=== PATIENT | female | born 1985 ===

== ENCOUNTER 2024-09-22 03:08 | Emergency (ER) | payer OTHER ==
[2024-09-22 04:30] LABS: SARS-CoV-2 Antigen CONTROL BLUE LINE VIS/BG OK; SARS-CoV-2 Antigen Rapid Res Negative (Negative)
[2024-09-22] MEDS ORDERED: ACETAMINOPHEN 500 MG TAB ONE (04:58)
[2024-09-22] MEDS ORDERED: AZITHROMYCIN 250 MG TAB ONE (04:58)
[2024-09-22] MEDS ORDERED: IBUPROFEN 400 MG TAB ONE (04:59)
[2024-09-22] MEDS ORDERED: ONDANSETRON 4 MG (ODT) TAB ONE (04:59)
[2024-09-22] MEDS ORDERED: GUAIFENESIN/DM 5 ML UCUP ONE (05:00)
--- NOTE | 2024-09-22 06:27 | EDPHYS ---
Physician Documentation [facility] Name: Ani Mcclendon Age: 39 yrs Sex: Female : 1985 Arrival Date: 09/22/2024 Time: 03:08 Bed 8 Private MD: ED Physician Kj Silva HPI: 09/22 03:27 This 39 yrs old Female presents to ER via Unassigned with complaints of sp4 Cough, Fever, Congestion, Ear Pain. 09/23 02:15 39-year-old female presents with complaint of acute fever, cough, body aches, sp4 congestion, left ear pain.. 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 Patient has never been vaccinated. - Infectious Disease History:: Denies. - Social history:: Smoking status: Patient denies any tobacco usage or history of. - Family history:: not pertinent. ROS: 09/23 02:15 Constitutional: Positive fever and bodyaches Eyes: Negative for injury, pain, redness, sp4 and discharge, ENT: Positive cough congestion ear pain All other systems are negative, Exam: 02:15 Constitutional: This is a well developed, well nourished patient who is awake, alert, sp4 and in no acute distress. Head/Face: Normocephalic, atraumatic. Eyes: Pupils equal round and reactive to light, extra-ocular motions intact. Lids and lashes normal. Conjunctiva and sclera are not injected. Cornea within normal limits. Periorbital areas with no swelling, redness, or edema. ENT: Nares patent. Positive for clear nasal discharge, positive pharyngeal erythema, positive for left tympanic membrane redness and opacification. Otherwise normal Neck: Trachea midline, no thyromegaly or masses palpated, and no cervical lymphadenopathy. Supple, full range of motion without nuchal rigidity, or vertebral point tenderness. Chest/axilla: Normal chest wall appearance and motion. Nontender with no deformity. No lesions are appreciated. Cardiovascular: Regular rate and rhythm with a normal S1 and S2. No gallops, murmurs, or rubs. Normal PMI, no JVD. No pulse deficits. Respiratory: Lungs have equal breath sounds bilaterally, clear to auscultation and percussion. No rales, rhonchi or wheezes noted. No increased work of breathing, no retractions or nasal flaring. Abdomen/GI: Soft, with normal bowel sounds. No distension or tympany. No guarding or rebound. No evidence of tenderness throughout. Back: No spinal tenderness. No costovertebral tenderness. Skin: Warm, dry with normal turgor. Normal color with no rashes, no lesions, and no evidence of cellulitis. MS/ Extremity: Pulses equal, no cyanosis. Neurovascular intact. Full, normal range of motion. Neuro: Awake and alert, GCS 15, oriented to person, place, time, and situation. Cranial nerves II-XII grossly intact. Motor strength 5/5 in all extremities. Sensory grossly intact. Psych: Awake, alert, with orientation to person, place and time. Behavior, mood, and affect are within normal limits Vital Signs: 09/22 03:34 BP 181 / 116; Pulse 92; Resp 17; Temp 98.4; Pulse Ox 100% on R/A; Weight 102.06 kg; dd2 Height 5 ft. 0 in. ; 05:41 BP 156 / 111; Pulse 90; Resp 17; Pulse Ox 97% on R/A; dd2 06:52 BP 152 / 101; Pulse 88; Resp 16; Temp 98.6; Pulse Ox 97% on R/A; dd2 03:34 Body Mass Index 43.94 (102.06 kg, 152.4 cm) dd2 Bobby Coma Score: 03:44 Eye Response: spontaneous(4). Motor Response: obeys commands(6). Verbal Response: dd2 oriented(5). Total: 15. 09/23 02:15 Eye Response: spontaneous(4). Motor Response: obeys commands(6). Verbal Response: sp4 oriented(5). Total: 15. MDM: 09/22 04:04 Medical Screening Exam initiated sp4 09/23 02:17 Differential Diagnosis: Obstructed Airway Bronchitis Influenza Upper Respiratory sp4 Infection Sinusitis Pharyngitis. Data reviewed: vital signs, nurses notes, lab test result(s), Flu: negative. Consideration of Admission/Observation Escalation of care including admission/observation considered. ED course: Custom -- patient provided Zithromax. And symptomatic medications. Stable for discharge home.. 09/22 03:34 Order name: Flu; Complete Time: 06:11 dd2 09/22 03:34 Order name: SARS RAPID; Complete Time: 06:11 dd2 09/22 03:43 Order name: Strep rv1 09/22 04:13 Order name: Throat Culture EDMS Administered Medications: 09/22 05:07 Drug: Acetaminophen PO 1000 mg PO once Route: PO; dd2 05:37 Follow up: Response: No adverse reaction dd2 05:08 Drug: Ibuprofen PO 800 mg PO once Route: PO; dd2 05:38 Follow up: Response: No adverse reaction dd2 05:08 Drug: Ondansetron PO 4 mg PO once Route: PO; dd2 05:38 Follow up: Response: No adverse reaction dd2 05:08 Drug: AZITHromycin PO 500 mg PO once Route: PO; dd2 05:38 Follow up: Response: No adverse reaction dd2 05:08 Drug: Dextromethorphan-Guaifenesin PO Liquid 10 mg-100 mg/5 mL 20 ml PO once Route: PO; dd2 05:38 Follow up: Response: No adverse reaction dd2 05:38 Follow up: Response: No adverse reaction dd2 Disposition Summary: 09/22/24 06:27 Discharge Ordered Notes: Location: Home sp4 Problem: new sp4 Symptoms: have improved sp4 Condition: Stable sp4 Diagnosis - Acute pharyngitis, unspecified sp4 - Cough sp4 - Acute suppurative otitis media without spontaneous rupture of ear drum, left ear sp4 Followup: sp4 - With: Private Physician - When: 7 - 10 days - Reason: Recheck today's complaints Discharge Instructions: - Discharge Summary Sheet sp4 - Pharyngitis sp4 Forms: - Patient Portal Instructions sp4 Prescriptions: - dextromethorphan-guaifenesin 20-400 mg Oral tablet - take 2 tablet ORAL route every 6 hours PRN cough; 60 tablet; Refills: 0, sp4 Product Selection Permitted - Ibuprofen 800 mg Oral Tablet - take 1 tablet ORAL route every 8 hours As needed take with food; 30 tablet; sp4 Refills: 0, Product Selection Permitted - Zithromax Z-Rambo 250 mg Oral Tablet - take 1 tablet ORAL route as directed for 5 days Day 1 - take two (2) tablets sp4 one time. Day 2, 3, 4 , 5 take one (1) tablet once daily.; 6 tablet; Refills: 0, Product Selection Permitted - promethazine 25 mg Oral tablet - take 1 tablet ORAL route every 6 hours As needed; 30 tablet; Refills: 0, sp4 Product Selection Permitted Signatures: Dispatcher [employer] Kj Dillon MD MD sp4 CAMI DUBON RN RN dd2
--- NOTE | 2024-09-22 06:27 | ER ---
Nurse's Notes [facility] Name: Ani Mcclendon Age: 39 yrs Sex: Female : 1985 Arrival Date: 09/22/2024 Time: 03:08 Bed 8 Private MD: Diagnosis: Acute pharyngitis, unspecified;Cough;Acute suppurative otitis media without spontaneous rupture of ear drum, left ear Presentation: 09/22 03:34 Chief complaint: Patient states: cough, congestion, sore throat and Lt ear pain x2 dd2 days. treating with OTC TheraFkristin and Antonella. Coronavirus screen: congestion, cough unrelated to allergies, sore throat. Ebola Screen: No symptoms or risks identified at this time. Resp Distress? No respiratory distress is noted at this time. Initial Sepsis Screen: Does the patient meet any 2 criteria? No. Patient's initial sepsis screen is negative. Does the patient have a suspected source of infection? No. Patient's initial sepsis screen is negative. Risk Assessment: Do you want to hurt yourself or someone else? Patient reports no desire to harm self or others. Onset of symptoms was September 20, 2024. 03:34 Method Of Arrival: Ambulatory dd2 03:34 Acuity: LAZARO 3 dd2 Triage Assessment: 03:39 General: Appears in no apparent distress. uncomfortable, Behavior is calm, cooperative, dd2 appropriate for age. Pain: Complains of pain in throat, lt ear. EENT: Ear canal Throat is reddened Reports pain in left ear, throat when swallowing. EENT: Reports nasal congestion. Neuro: No deficits noted. Abbott Agitation-Sedation Scale (RASS): 0 - Alert and Calm Level of Consciousness is awake, alert, obeys commands, Oriented to person, place, time, situation, Appropriate for age. Cardiovascular: No deficits noted. Patient's skin is warm and dry. Respiratory: Reports cough that is non-productive, Airway is patent Respiratory effort is even, unlabored, Respiratory pattern is regular, symmetrical, Breath sounds are clear bilaterally. GI: No deficits noted. No signs and/or symptoms were reported involving the gastrointestinal system. Abdomen is non-distended, obese. : No deficits noted. No signs and/or symptoms were reported regarding the genitourinary system. Derm: No deficits noted. No signs and/or symptoms reported regarding the dermatologic system. Musculoskeletal: No deficits noted. No signs and/or symptoms reported regarding the musculoskeletal system. Circulation, motion, and sensation intact. Range of motion: intact in all extremities. 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 Patient has never been vaccinated. - Infectious Disease History:: Denies. - Social history:: Smoking status: Patient denies any tobacco usage or history of. - Family history:: not pertinent. Screenin:44 [facility] ED Fall Risk Assessment (Adult) History of falling in the last 3 months, dd2 including since admission No falls in past 3 months (0 pts) Confusion or Disorientation No (0 pts) Intoxicated or Sedated No (0 pts) Impaired Gait No (0 pts) Mobility Assist Device Used No (0 pt) Altered Elimination No (0 pt) Score/Fall Risk Level 0 - 2 = Low Risk Oriented to surroundings, Maintained a safe environment, Educated pt \T\ family on fall prevention, incl call for assistance when getting out of bed, Assessed \T\ reinforced patient's understanding of fall precautions, Hourly rounding (assess needs \T\ fall precautionary measures) done. Abuse screen: Denies threats or abuse. Nutritional screening: No deficits noted. Tuberculosis screening: No symptoms or risk factors identified. Assessment: 03:44 Reassessment: SEE TRIAGE ASSESSMENT FOR FULL ASSESSMENT. dd2 Vital Signs: 03:34 BP 181 / 116; Pulse 92; Resp 17; Temp 98.4; Pulse Ox 100% on R/A; Weight 102.06 kg; dd2 Height 5 ft. 0 in. ; 05:41 BP 156 / 111; Pulse 90; Resp 17; Pulse Ox 97% on R/A; dd2 06:52 BP 152 / 101; Pulse 88; Resp 16; Temp 98.6; Pulse Ox 97% on R/A; dd2 03:34 Body Mass Index 43.94 (102.06 kg, 152.4 cm) dd2 Bobby Coma Score: 03:44 Eye Response: spontaneous(4). Motor Response: obeys commands(6). Verbal Response: dd2 oriented(5). Total: 15. 09/23 02:15 Eye Response: spontaneous(4). Motor Response: obeys commands(6). Verbal Response: sp4 oriented(5). Total: 15. ED Course: 09/22 03:13 Patient arrived in ED. gm2 03:27 Kj Silva MD is Attending Physician. sp4 03:33 CAMI DUBON RN is Primary Nurse. dd2 03:39 Triage completed. dd2 03:39 Arm band placed on right wrist. dd2 03:44 Patient has correct armband on for positive identification. Bed in low position. Call dd2 light in reach. Side rails up X 1. Client placed on continuous cardiac and pulse oximetry monitoring. NIBP monitoring applied. Door closed. Noise minimized. Warm blanket given. Pillow given. Verbal reassurance given. 03:44 No provider procedures requiring assistance completed. COVID swab sent to lab. Flu dd2 and/or RSV swab sent to lab. Strep swab sent to lab. Patient maintains SpO2 saturation greater than 95% on room air. 03:47 Strep Sent. dd2 03:47 SARS RAPID Sent. dd2 03:47 Flu Sent. dd2 07:16 Provided Education on: D/C EDUCATION. dd2 07:16 Patient did not have IV access during this emergency room visit. dd2 Administered Medications: 05:07 Drug: Acetaminophen PO 1000 mg PO once Route: PO; dd2 05:37 Follow up: Response: No adverse reaction dd2 05:08 Drug: Ibuprofen PO 800 mg PO once Route: PO; dd2 05:38 Follow up: Response: No adverse reaction dd2 05:08 Drug: Ondansetron PO 4 mg PO once Route: PO; dd2 05:38 Follow up: Response: No adverse reaction dd2 05:08 Drug: AZITHromycin PO 500 mg PO once Route: PO; dd2 05:38 Follow up: Response: No adverse reaction dd2 05:08 Drug: Dextromethorphan-Guaifenesin PO Liquid 10 mg-100 mg/5 mL 20 ml PO once Route: PO; dd2 05:38 Follow up: Response: No adverse reaction dd2 05:38 Follow up: Response: No adverse reaction dd2 Medication: 03:44 VIS not applicable for this client. dd2 Outcome: 06:27 Discharge ordered by . sp4 07:16 Discharged to home ambulatory, dd2 07:16 Condition: stable 07:16 Discharge instructions given to patient, Instructed on discharge instructions, follow up and referral plans. medication usage, Demonstrated understanding of instructions, follow-up care, medications, Prescriptions given X 4, 07:17 Patient left the ED. dd2 Signatures: Kj Silva MD MD sp4 Anali Mary 2 CAMI DUBON RN RN dd2
[2024-09-22 08:00] VITALS: O2SAT 97
[2024-09-22 08:02] VITALS: BP 152/101; TEMP 98.6
== END 2024-09-22 07:17 | disposition home or self-care (01) ==
LOC: ER 03:08
DX: H66.002 Acute suppurative otitis media without spontaneous rupture of ear drum, left ear (principal); R05.9 Cough, unspecified; J02.9 Acute pharyngitis, unspecified; Z11.52 Encounter for screening for COVID-19
CPT/HCPCS: 87070; 36415; 87081; 87804 ×2; 87811; Q0162

== ENCOUNTER 2024-10-26 17:47 | Inpatient (IN) | payer OTHER ==
[2024-10-26 19:50] LABS: Absolute Basophils 0.1 K/uL (0-0.5); Absolute Eosinophils 0.2 K/uL (0-0.5); Absolute Lymphocytes (CBC) 3.3 K/uL (0.7-4.9); Absolute Monocytes 0.9 K/uL (0.1-1.3); Absolute Neutrophil 12.2 K/uL (1.8-8.0); Basophils % 0.8 % (0-1.3); Eosinophils % 1.1 % (0-4.4); Hemoglobin 9.2 g/dL (12.0-15.0); Lymphocytes % 19.6 % (15.3-44.8); MCH 17.9 pg (27.0-35.0); MCHC 29.5 g/dL (32.0-36.0); MCV 60.5 fL (80-100); MPV 8.6 fL (7.6-11.3); Monocytes % 5.3 % (3.3-12.3); Neutrophils % 73.2 % (41.7-73.7); Platelets 421 thou/uL (152-406); RBC Red Blood Cell Count 5.13 M/uL (3.86-4.86); Red Cell Distribution Width 19.5 % (12.1-15.2)
[2024-10-26] MEDS ORDERED: NA CHLORIDE 0.9% 1,000 ML ONE (19:59)
[2024-10-26 20:00] LABS: Specific Gravity 1.011 (1.005-1.030); Sqamous Epithelial <5 /HPF (None Seen); Urine Bacteria None Seen /HPF (<20); Urine Bilirubin NEGATIVE (Negative); Urine Blood Negative (Negative); Urine Clarity Extremely Turbid (Clear); Urine Color Light-Yellow (Yellow); Urine Crystals Unidentified Few /HPF (None Seen); Urine Glucose NEGATIVE (Negative); Urine Ketones NEGATIVE (Negative); Urine Micro Reflex YN NO BILL MICROSCOPIC; Urine Nitrite NEGATIVE (Negative); Urine Protein NEGATIVE (Negative); Urine RBC <5 /HPF (None Seen); Urine Urobilinogen Normal (Normal); Urine WBC <5 /HPF (<5); Urine WBC Clump Rare /HPF (None Seen); Urine Yeast (Budding) Trace /HPF (None Seen); Urine pH 5.5 (5.0-7.0)
[2024-10-26 20:02] LABS: Specific Gravity 1.011 (1.005-1.030)
[2024-10-26 20:11] LABS: Anion Gap 11.7 mEq/L (5.0-15.0); Potassium 3.7 mEq/L (3.5-5.1); Troponin High Sensitivity 33.3 pg/mL (<58.9)
--- NOTE | 2024-10-26 20:12 | RAD REPORT ---
EXAMINATION: ONE VIEW CHEST XR CLINICAL INDICATION: Female, 39 years old.,DYSPNEA TECHNIQUE: Frontal chest projection is submitted. Examination is limited by patient positioning and t echnique. COMPARISON: No prior exam. FINDINGS: The lungs are well inflated and clear. No pneumothorax or sizable effusion. The heart is normal in s ize. Mediastinal contours are unremarkable. IMPRESSION: No acute intrathoracic abnormalities.
[2024-10-26] MEDS ORDERED: Magnesium Sulfate 2gm IVPB 2 G/50 ML BAG IV ONE (20:14)
[2024-10-26] MEDS ORDERED: KETOROLAC 30 MG/ML INJ ONE (20:14)
[2024-10-26 21:00] LABS: Influenza A Ag Negative; Influenza B Ag Negative; SARS-CoV-2 Antigen Rapid Res Negative (Negative)
[2024-10-26] MEDS ORDERED: METOCLOPRAMIDE 10 MG/2mL INJ ONE (21:25)
[2024-10-26] MEDS ORDERED: HYDRALAZINE HCL 20 MG/ML VIAL ONE (21:25)
[2024-10-26 22:01] LABS: Anisocytosis 1+; Blood Morphology Comment NOTED (NOT SEEN); Hypochromasia 2+; Microcytosis 2+; Platelet Estimate INCR; Polychromasia SLIGHT; White Blood Cell Scan OK (OK)
[2024-10-26] MEDS ORDERED: VANCOMYCIN 1 GM/VIAL ONE (22:21)
[2024-10-26] MEDS ORDERED: NA CHLORIDE 0.9% 500 ML ONE (22:22)
[2024-10-26] MEDS ORDERED: NA CHLORIDE 0.9% 100 ML ONE (22:22)
[2024-10-26] MEDS ORDERED: CEFEPIME 1 GM/VIAL ONE (22:22)
--- NOTE | 2024-10-26 23:23 | RAD REPORT ---
EXAM: CT Head Brain Wo Cont HISTORY: DIZZINESS COMPARISON: None TECHNIQUE: Multiple contiguous axial images were obtained for a CT of the brain without contrast. Sag ittal and coronal reformats were performed. One or more of the following dose reduction techniques were used: Automated exposure control, adjus tment of the mA and kV according to patient size, and iterative reconstruction. Unless otherwise specified, incidental findings do not require dedicated imaging follow-up. FINDINGS: No evidence of hydrocephalus, intracranial hemorrhage, or extra-axial fluid collection. Mild descent of the cerebellar tonsils not exceeding 5 mm. The brain is normal in morphology. The calvarium is intact. The visualized paranasal sinuses and mastoid air cells are essentially clear . IMPRESSION: No evidence of acute intracranial abnormality. Mild tonsillar ectopia.
--- NOTE | 2024-10-27 00:04 | RAD REPORT ---
EXAM: CT CHEST, ABDOMEN AND PELVIS WITH CONTRAST CLINICAL INDICATION: Female, 39 years old. fever , sepsis TECHNIQUE: CT chest, abdomen, and pelvis was performed, following the administration of contrast, as per department protocol. Axial, sagittal and coronal reconstructions were obtained. One or more of the following dose reduction techniques were used: Automated exposure control, adjustment of the mA a nd/or kV according to patient size, and/or iterative reconstruction. Unless otherwise specified, incidental findings do not require dedicated imaging follow-up. COMPARISON: Called breasts for CT FINDINGS: Motion artifact at the level of the upper to mid abdomen limits evaluation. LUNGS AND AIRWAYS: No evidence of airspace or interstitial process. No nodules. PLEURA: No pleural effusion. No pneumothorax. MEDIASTINUM AND LYMPH NODES: No mediastinal mass or fluid collection. Normal size mediastinal, hilar, and axillary lymph nodes. THORACIC AORTA: Normal caliber and configuration. PULMONARY ARTERIES: Normal caliber. OSSEOUS STRUCTURES AND CHEST WALL: Intact. LIVER: Normal in size and contour. No focal lesion or biliary dilitation. BILIARY SYSTEM: Calcific focus probably within folds of the gallbladder fundus, may represent a calcu kevin.. PANCREAS: No mass, ductal dilation, or ani-pancreatic fluid. SPLEEN: Normal size. No focal lesion. ADRENALS: Normal; no mass. KIDNEYS AND URETERS: Normal size and contour. No hydronephrosis. URINARY BLADDER: Normal contour. GASTROINTESTINAL TRACT: No bowel obstruction, free air, significant free fluid or abscess. APPENDIX: No inflammatory changes in region of appendix. LYMPH NODES: No lymphadenopathy. ABDOMINAL AORTA AND OTHER VESSELS: Normal caliber aorta and IVC. MUSCULOSKELETAL: No acute or suspicious osseous abnormality. Grade 1 spondylolisthesis at L5-S1. Supe rior endplate compression deformities at T11 and T12, favored to be chronic. Bulky appearance of the uterine fundus, especially along the anterior wall, could relate to an underl nikolai fibroid. IMPRESSION: No acute or significant abnormalities seen in the chest, abdomen or pelvis. Motion artifact at the le rebeka of the upper to mid abdomen limits evaluation. Incidental findings as above.
[2024-10-27 00:07] LABS: ALT/SGPT 31 U/L (13-56); Albumin 3.4 g/dL (3.4-5.0); Albumin/Globulin Ratio 0.7 (1.1-1.8); Alkaline Phosphatase 125 U/L (45-117); Bilirubin Total 0.3 mg/dL (0.2-1.0); Globulin 4.6 g/dL (2.3-3.5)
[2024-10-27 00:16] LABS: AST/SGOT 31 U/L (15-37); Bilirubin Direct < 0.2 mg/dL (0-0.2); Bilirubin Indirect, Calculated 0.1 mg/dL (0.2-0.8)
--- NOTE | 2024-10-27 00:38 | EDPHYS ---
Physician Documentation [facility] Name: Ani Mcclendon Age: 39 yrs Sex: Female : 1985 Arrival Date: 10/26/2024 Time: 17:47 Bed 7 Private MD: ED Physician Kj Silva HPI: 10/26 19:40 This 39 yrs old Female presents to ER via Ambulatory with complaints of ec2 General Weakness, High Blood Pressure, Body aches, fatigue. 19:40 Patient arrives today for generalized weakness as well as malaise. Patient reports that ec2 she is been feeling unwell for the past couple days. Patient reports generalized bodyaches, reports that she is feeling fatigued. States that she has a history of hypothyroidism, is on levothyroxine however has not taken her medications for several days. Patient reports no chest pain, no shortness of breath, does report some baseline tiredness as well as some baseline dyspnea exertion which she attributes to her weight. Denies any active symptoms. Denies abdominal pain, denies urinary complaints. Reports history of anemia.. 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 - Infectious Disease History:: Denies. - Social history:: Smoking status: Patient denies any tobacco usage or history of. ROS: 19:41 Constitutional: as per hpi ec2 Exam: 19:41 Constitutional: GEN: NAD Head: atraumatic Eyes: EOMI Ears: External ears are ec2 normal. CV: Tachycardia LUNGS: no respiratory distress, no wheezes or rales or rhonchi ABD: non-distended, soft, nontender, not guarding, not rigid SKIN: no evidence of rashes MSK: no evidence of trauma 10/27 22:00 ECG was reviewed by the Attending Physician. 2143 sinus tachycardia rate 123 left sp4 axis deviation. Vital Signs: 10/26 18:09 BP 180 / 119; Pulse 111; Resp 19; Temp 98.6; Pulse Ox 100% ; Weight 102.06 kg; Height 5 me1 ft. 0 in. ; Pain 9/10; 19:45 BP 196 / 129; Pulse 104; Resp 18; Pulse Ox 100% ; al5 20:00 BP 208 / 138; Pulse 99; Resp 18; Pulse Ox 100% ; al5 20:30 BP 206 / 117; Pulse 102; Resp 20; Pulse Ox 100% ; al5 20:30 BP 201 / 122; Pulse 104; Resp 22; Pulse Ox 100% ; al5 21:00 BP 204 / 117; Pulse 106; Resp 16; Pulse Ox 100% ; al5 21:30 BP 156 / 102; Pulse 108; Resp 16; Pulse Ox 99% ; al5 22:00 BP 171 / 84; Pulse 117; Resp 21; Pulse Ox 100% ; al5 22:30 BP 141 / 84; Pulse 120; Resp 18; Pulse Ox 100% ; al5 23:00 BP 151 / 66; Pulse 117; Resp 19; Pulse Ox 100% ; al5 23:30 BP 156 / 72; Pulse 117; Resp 17; Pulse Ox 98% ; al5 10/27 00:00 BP 148 / 89; Pulse 116; Resp 17; Pulse Ox 99% ; al5 00:30 BP 153 / 100; Pulse 120; Resp 18; Pulse Ox 100% ; al5 01:00 BP 154 / 80; Pulse 115; Resp 16; Pulse Ox 100% ; al5 10/26 18:09 Body Mass Index 43.94 (102.06 kg, 152.4 cm) ak1 10/26 18:09 Pain Scale: Adult [facility] MDM: 10/26 18:09 Medical Screening Exam initiated ec2 19:41 Data reviewed: vital signs, nurses notes. ED course: Patient arrives today for ec2 generalized weakness. Examination yields tachycardic individual who is hypertensive. Will obtain lab work, EKG, chest x-ray, urine studies. DDx include processes such as thyroid process, anemia, electrolyte disturbances, dehydration.. 19:56 ED course: EKG independently reviewed and interpreted by me, shows normal sinus rhythm, ec2 rate of 98, no acute ST segment elevations, intervals are nonactionable.. 23:55 ED course: EXAM: CT Head Brain Wo Cont HISTORY: DIZZINESS COMPARISON: None TECHNIQUE: sp4 Multiple contiguous axial images were obtained for a CT of the brain without contrast. Sagittal and coronal reformats were performed. One or more of the following dose reduction techniques were used: Automated exposure control, adjustment of the mA and kV according to patient size, and iterative reconstruction. Unless otherwise specified, incidental findings do not require dedicated imaging follow-up. FINDINGS: No evidence of hydrocephalus, intracranial hemorrhage, or extra-axial fluid collection. Mild descent of the cerebellar tonsils not exceeding 5 mm. The brain is normal in morphology. The calvarium is intact. The visualized paranasal sinuses and mastoid air cells are essentially clear. IMPRESSION: No evidence of acute intracranial abnormality. Mild tonsillar ectopia. . 23:57 ED course: EXAMINATION: ONE VIEW CHEST XR CLINICAL INDICATION: Female, 39 years sp4 old.,DYSPNEA TECHNIQUE: Frontal chest projection is submitted. Examination is limited by patient positioning and technique. COMPARISON: No prior exam. FINDINGS: The lungs are well inflated and clear. No pneumothorax or sizable effusion. The heart is normal in size. Mediastinal contours are unremarkable. IMPRESSION: No acute intrathoracic abnormalities. . 10/27 00:15 ED course: EXAM: CT CHEST, ABDOMEN AND PELVIS WITH CONTRAST CLINICAL INDICATION: sp4 Female, 39 years old. fever , sepsis COMPARISON: Called breasts for CT FINDINGS: Motion artifact at the level of the upper to mid abdomen limits evaluation. LUNGS AND AIRWAYS: No evidence of airspace or interstitial process. No nodules. PLEURA: No pleural effusion. No pneumothorax. MEDIASTINUM AND LYMPH NODES: No mediastinal mass or fluid collection. Normal size mediastinal, hilar, and axillary lymph nodes. THORACIC AORTA: Normal caliber and configuration. PULMONARYARTERIES: Normal caliber. OSSEOUS STRUCTURES AND CHEST WALL: Intact. LIVER: Normal in size and contour. No focal lesion or biliary dilitation. BILIARYSYSTEM: Calcific focus probably within folds of the gallbladder fundus, may represent a calculus.. PANCREAS: No mass, ductal dilation, or ani-pancreatic fluid. SPLEEN: Normal size. No focal lesion. ADRENALS: Normal; no mass. KIDNEYS AND URETERS: Normal size and contour. No hydronephrosis. URINARYBLADDER: Normal contour. GASTROINTESTINAL TRACT: No bowel obstruction, free air, significant free fluid or abscess. APPENDIX: No inflammatory changes in region of appendix. LYMPH NODES: No lymphadenopathy. ABDOMINAL AORTA AND OTHER VESSELS: Normal caliber aorta and IVC. MUSCULOSKELETAL: No acute or suspicious osseous abnormality. Grade 1 spondylolisthesis at L5-S1. Superior endplate compression deformities at T11 and T12, favored to be chronic. Bulky appearance of the uterine fundus, especially along the anterior wall, could relate to an underlying fibroid. IMPRESSION: No acute or significant abnormalities seen in the chest, abdomen or pelvis. Motion artifact at the level of the upper to mid abdomen limits evaluation. Incidental findings as above. . 10/26 18:02 Order name: Basic Metabolic Panel; Complete Time: 20:12 ec2 10/26 18:02 Order name: CBC with Diff; Complete Time: 23:17 ec2 10/26 18:02 Order name: Troponin HS; Complete Time: 20:12 ec2 10/26 18:02 Order name: UAM; Complete Time: 20:02 ec2 10/26 18:10 Order name: Test, Urine; Complete Time: 20:02 ec2 10/26 19:38 Order name: TSH; Complete Time: 00:28 ec2 10/26 19:38 Order name: T4 Free; Complete Time: 00:28 ec2 10/26 19:38 Order name: LFT's; Complete Time: 00:28 ec2 10/26 19:40 Order name: CK; Complete Time: 23:55 ec2 10/26 20:03 Order name: COVID-19 Ag + Flu A+B Ag; Complete Time: 23:17 ec2 10/26 20:03 Order name: Lactate w/ 2H reflex if indic.; Complete Time: 23:17 ec2 10/26 20:03 Order name: Blood Culture Adult (2) ec2 10/26 22:02 Order name: CBC Smear Scan; Complete Time: 23:17 EDMS 10/27 02:26 Order name: Basic Metabolic Panel EDMS 10/27 02:26 Order name: Basic Metabolic Panel EDMS 10/27 02:26 Order name: CBC with Automated Diff EDMS 10/27 02:26 Order name: CBC with Automated Diff EDMS 10/27 02:26 Order name: Lipid Profile EDMS 10/27 02:26 Order name: Lipid Profile EDMS 10/27 06:17 Order name: T3 Free EDID 10/27 08:42 Order name: CBC with Automated Diff EDID 10/27 08:42 Order name: Retic Count EDID 10/27 08:53 Order name: Procalcitonin EDID 10/27 09:10 Order name: Comprehensive Metabolic Panel EDID 10/27 09:10 Order name: Magnesium EDID 10/27 09:10 Order name: Transferrin Sat/Iron Binding EDID 10/27 09:10 Order name: Ferritin [facility] 10/26 19:38 Order name: CXR XRAY; Complete Time: 20:12 ec2 10/26 21:31 Order name: CT Head Brain wo Cont; Complete Time: 23:55 sp4 10/26 21:31 Order name: CT Chest, Abdomen, Pelvis - W/Contrast; Complete Time: 00:28 sp4 10/26 18:02 Order name: EKG; Complete Time: 18:03 ec2 10/26 18:02 Order name: Cardiac monitoring; Complete Time: 19:44 ec2 10/26 18:02 Order name: EKG - Nurse/Tech; Complete Time: 19:44 ec2 10/26 18:02 Order name: IV Saline Lock; Complete Time: 19:44 ec2 10/26 18:02 Order name: Labs collected and sent; Complete Time: 19:44 ec2 10/26 18:02 Order name: O2 Per Protocol; Complete Time: 19:44 ec2 10/26 18:02 Order name: O2 Sat Monitoring; Complete Time: 19:44 ec2 EC/25 21:43 Rate is 123 beats/min. Rhythm is regular, Sinus tachycardia. Left axis deviation noted. sp4 VA interval is normal. QRS interval is normal. QT interval is normal. No Q waves. T waves are Normal. No ST changes noted. Clinical impression: No evidence of ischemia. Interpreted by me. Reviewed by me. Administered Medications: 20:01 Drug: NS 0.9% IV 1000 ml IV at 1000 ml once; to be given as a bolus over 60 minutes al5 Route: IV; Rate: 1000 ml; Site: right antecubital; 10/27 00:00 Follow up: Response: No adverse reaction; IV Status: Completed infusion; IV Intake: al5 1000ml 10/26 20:20 Drug: Magnesium Sulfate IVPB 2 grams IVPB once over 30 mins Route: IVPB; Infused Over: al5 30 mins; Site: right antecubital; 21:31 Follow up: Response: No adverse reaction; IV Status: Completed infusion; IV Intake: [id number] 20:20 Drug: Ketorolac IVP 15 mg IVP once Route: IVP; Site: right antecubital; al5 21:31 Follow up: Response: No adverse reaction; No adverse reaction; body aches decreased al5 21:31 Drug: hydrALAZINE IVP 20 mg IVP once Route: IVP; Site: right antecubital; al5 23:21 Follow up: Response: No adverse reaction; Blood pressure is lowered al5 21:31 Drug: metoCLOPramide IVP 10 mg IVP once; over 1 to 2 minutes Route: IVP; Site: right al5 antecubital; 23:21 Follow up: Response: No adverse reaction al5 23:21 Not Given (Physician Discretion): morphineor iv 4 mg IVP once over 4 mins al5 23:21 Drug: Cefepime IVPB 1 grams IVPB at 200 ml/hr once over 30 mins; (mix in NS 100 mL) al5 Route: IVPB; Rate: 200 ml/hr; Infused Over: 30 mins; Site: right antecubital; 10/27 00:00 Follow up: Response: No adverse reaction; IV Status: Completed infusion; IV Intake: al5 100ml 10/26 23:22 Not Given (Physician Discretion): ondansetron 4 mg IVP once; over 2 minutes al5 10/27 00:02 Drug: vancoMYCIN IVPB 2 grams IVPB at calculated rate once Route: IVPB; Rate: dd2 calculated rate; Site: right forearm; 02:13 Follow up: Response: No adverse reaction; IV Status: Completed infusion; IV Intake: al5 500ml Disposition Summary: 10/27/24 00:38 Hospitalization Ordered Notes: Hospitalization Status: Inpatient Admission sp4 Provider: Prince jackelyn Han Condition: Serious sp4 Problem: new sp4 Symptoms: have improved sp4 Bed/Room Type: Standard sp4 Location: Telemetry/MedSurg (Inpatient)(10/27/24 13:51) bd Room Assignment: 223(10/27/24 13:51) bd Diagnosis - Severe sepsis without septic shock sp4 - Uncontrolled hypertension, hypertensive urgency sp4 Forms: - Medication Reconciliation Form sp4 - SBAR form sp4 - Leadership Thank You Letter sp4 Critical care time excluding procedures: 00:38 Critical care time: Bedside Care: 36 minutes, Consultation: 12 minutes, Family sp4 Intervention: 12 minutes. Total time: 60 minutes Signatures: Dispatcher [employer] EDMS Rosemarie Wallace bd Vanesa Monroe rv1 Kj Silva MD MD sp4 Alie Nice, RN RN me1 Toro Maciel MD MD ec2 Senia Bruce RN RN al5 CAMI DUBON RN RN dd2 Corrections: (The following items were deleted from the chart) 10/26 19:41 19:41 CREATINE PHOSPHOKINASE+C.LAB.BRZ ordered. EDMS EDMS 19:41 19:40 Patient arrives today for generalized weakness as well as malaise.. ec2 ec2 20:03 20:03 COVID-19 Ag + Flu A+B Ag+I.LAB.BRZ ordered. EDMS EDMS 20:03 20:03 LACTATE+C.LAB.BRZ ordered. EDMS EDMS 20:03 20:03 BLOOD CULTURE*+BA.LAB.BRZ ordered. EDMS EDMS 21:31 21:31 Head Brain Wo Cont+CT.RAD.BRZ ordered. EDMS EDMS 10/27 04:03 00:38 Telemetry/MedSurg (Inpatient) sp4 rv1 04:03 00:38 sp4 rv1 13:51 04:03 [facility] ER HOLD rv1 bd 13:51 04:03 ERHOLD- rv1 bd
--- NOTE | 2024-10-27 00:38 | ER ---
Nurse's Notes [facility] Name: Ani Mcclendon Age: 39 yrs Sex: Female : 1985 Arrival Date: 10/26/2024 Time: 17:47 Bed 7 Private MD: Diagnosis: Severe sepsis without septic shock;Uncontrolled hypertension, hypertensive urgency Presentation: 10/26 18:09 Chief complaint: Patient states: she has had generalized weakness, body aches, high me1 blood pressure that started yesterday afternoon. Coronavirus screen: Vaccine status: Patient reports receiving the 2nd dose of the covid vaccine. Ebola Screen: No symptoms or risks identified at this time. Initial Sepsis Screen: Does the patient meet any 2 criteria? HR > 90 bpm. Does the patient have a suspected source of infection? No. Patient's initial sepsis screen is negative. Risk Assessment: Do you want to hurt yourself or someone else? Patient reports no desire to harm self or others. Onset of symptoms. 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 - Infectious Disease History:: Denies. - Social history:: Smoking status: Patient denies any tobacco usage or history of. Screenin:46 [facility] ED Fall Risk Assessment (Adult) History of falling in the last 3 months, al5 including since admission No falls in past 3 months (0 pts) Confusion or Disorientation No (0 pts) Intoxicated or Sedated No (0 pts) Impaired Gait No (0 pts) Mobility Assist Device Used No (0 pt) Altered Elimination No (0 pt) Score/Fall Risk Level 0 - 2 = Low Risk Oriented to surroundings, Maintained a safe environment, Hourly rounding (assess needs \T\ fall precautionary measures) done. Abuse screen: Denies threats or abuse. Denies injuries from another. Nutritional screening: No deficits noted. Tuberculosis screening: No symptoms or risk factors identified. Assessment: 19:44 General: Appears in no apparent distress. comfortable, Behavior is calm, cooperative. al5 Pain: Complains of pain in generalized. Neuro: Level of Consciousness is awake, alert, obeys commands, Oriented to person, place, time, situation. Cardiovascular: Reports high BP, generalized weakness Capillary refill < 3 seconds Patient's skin is warm and dry. Respiratory: Airway is patent Respiratory effort is even, unlabored, Respiratory pattern is regular, symmetrical. GI: No signs and/or symptoms were reported involving the gastrointestinal system. : No signs and/or symptoms were reported regarding the genitourinary system. EENT: No signs and/or symptoms were reported regarding the EENT system. Derm: Skin is intact, is healthy with good turgor, Skin is pink, warm \T\ dry. normal. Musculoskeletal: No signs and/or symptoms reported regarding the musculoskeletal system. 20:41 Reassessment: Patient appears in no apparent distress at this time. No changes from al5 previously documented assessment. Patient and/or family updated on plan of care and expected duration. Pain level reassessed. Patient is alert, oriented x 3, equal unlabored respirations, skin warm/dry/pink. 21:28 Reassessment: Patient appears in no apparent distress at this time. No changes from al5 previously documented assessment. Patient and/or family updated on plan of care and expected duration. Pain level reassessed. Patient is alert, oriented x 3, equal unlabored respirations, skin warm/dry/pink. 23:39 Reassessment: Patient appears in no apparent distress at this time. No changes from al5 previously documented assessment. Patient and/or family updated on plan of care and expected duration. Pain level reassessed. Patient is alert, oriented x 3, equal unlabored respirations, skin warm/dry/pink. BP has decreased to normal parameters. 10/27 01:00 Reassessment: Patient appears in no apparent distress at this time. No changes from al5 previously documented assessment. Patient and/or family updated on plan of care and expected duration. Pain level reassessed. Patient is alert, oriented x 3, equal unlabored respirations, skin warm/dry/pink. Vital Signs: 10/26 18:09 BP 180 / 119; Pulse 111; Resp 19; Temp 98.6; Pulse Ox 100% ; Weight 102.06 kg; Height 5 me1 ft. 0 in. ; Pain 9/10; 19:45 BP 196 / 129; Pulse 104; Resp 18; Pulse Ox 100% ; al5 20:00 BP 208 / 138; Pulse 99; Resp 18; Pulse Ox 100% ; al5 20:30 BP 206 / 117; Pulse 102; Resp 20; Pulse Ox 100% ; al5 20:30 BP 201 / 122; Pulse 104; Resp 22; Pulse Ox 100% ; al5 21:00 BP 204 / 117; Pulse 106; Resp 16; Pulse Ox 100% ; al5 21:30 BP 156 / 102; Pulse 108; Resp 16; Pulse Ox 99% ; al5 22:00 BP 171 / 84; Pulse 117; Resp 21; Pulse Ox 100% ; al5 22:30 BP 141 / 84; Pulse 120; Resp 18; Pulse Ox 100% ; al5 23:00 BP 151 / 66; Pulse 117; Resp 19; Pulse Ox 100% ; al5 23:30 BP 156 / 72; Pulse 117; Resp 17; Pulse Ox 98% ; al5 10/27 00:00 BP 148 / 89; Pulse 116; Resp 17; Pulse Ox 99% ; al5 00:30 BP 153 / 100; Pulse 120; Resp 18; Pulse Ox 100% ; al5 01:00 BP 154 / 80; Pulse 115; Resp 16; Pulse Ox 100% ; al5 10/26 18:09 Body Mass Index 43.94 (102.06 kg, 152.4 cm) [facility] 10/26 18:09 Pain Scale: Adult [facility] ED Course: 10/26 17:50 Patient arrived in ED. im 18:02 Toro Maciel MD is Attending Physician. ec2 18:14 Triage completed. me1 18:14 Arm band placed on Patient placed in waiting room. me1 19:44 Senia Bruce, NIK is Primary Nurse. al5 19:47 Patient has correct armband on for positive identification. Bed in low position. Call al5 light in reach. Side rails up X 1. Provided Education on: plan of care. 19:47 No provider procedures requiring assistance completed. Inserted saline lock: 22 gauge al5 in right antecubital area, using aseptic technique. Blood collected. Flushed with 10 mL NS. 19:50 CXR XRAY In Process Unspecified. EDMS 20:37 Attending Physician role handed off by Toro Maciel MD sp4 20:37 Kj Silva MD is Attending Physician. sp4 20:49 Blood Culture Adult (2) Sent. rv1 20:49 Lactate w/ 2H reflex if indic. Sent. rv1 20:49 COVID-19 Ag + Flu A+B Ag Sent. rv1 22:20 CT Head Brain wo Cont In Process Unspecified. EDMS 22:20 CT Chest, Abdomen, Pelvis - W/Contrast In Process Unspecified. EDMS 10/27 00:37 Prince Han MD is Hospitalizing Provider. sp4 01:00 Patient admitted, IV remains in place. al5 Administered Medications: 10/26 20:01 Drug: NS 0.9% IV 1000 ml IV at 1000 ml once; to be given as a bolus over 60 minutes al5 Route: IV; Rate: 1000 ml; Site: right antecubital; 10/27 00:00 Follow up: Response: No adverse reaction; IV Status: Completed infusion; IV Intake: al5 1000ml 10/26 20:20 Drug: Magnesium Sulfate IVPB 2 grams IVPB once over 30 mins Route: IVPB; Infused Over: al5 30 mins; Site: right antecubital; 21:31 Follow up: Response: No adverse reaction; IV Status: Completed infusion; IV Intake: [id number] 20:20 Drug: Ketorolac IVP 15 mg IVP once Route: IVP; Site: right antecubital; al5 21:31 Follow up: Response: No adverse reaction; No adverse reaction; body aches decreased al5 21:31 Drug: hydrALAZINE IVP 20 mg IVP once Route: IVP; Site: right antecubital; al5 23:21 Follow up: Response: No adverse reaction; Blood pressure is lowered al5 21:31 Drug: metoCLOPramide IVP 10 mg IVP once; over 1 to 2 minutes Route: IVP; Site: right al5 antecubital; 23:21 Follow up: Response: No adverse reaction al5 23:21 Not Given (Physician Discretion): morphineor iv 4 mg IVP once over 4 mins al5 23:21 Drug: Cefepime IVPB 1 grams IVPB at 200 ml/hr once over 30 mins; (mix in NS 100 mL) al5 Route: IVPB; Rate: 200 ml/hr; Infused Over: 30 mins; Site: right antecubital; 10/27 00:00 Follow up: Response: No adverse reaction; IV Status: Completed infusion; IV Intake: al5 100ml 10/26 23:22 Not Given (Physician Discretion): ondansetron 4 mg IVP once; over 2 minutes al5 10/27 00:02 Drug: vancoMYCIN IVPB 2 grams IVPB at calculated rate once Route: IVPB; Rate: dd2 calculated rate; Site: right forearm; 02:13 Follow up: Response: No adverse reaction; IV Status: Completed infusion; IV Intake: al5 500ml Medication: 10/26 19:47 VIS not applicable for this client. al5 Intake: 21:31 IV: 50ml; Total: 50ml. al5 10/27 00:00 IV: 100ml; Total: 150ml. al5 00:00 IV: 1000ml; Total: 1150ml. al5 02:13 IV: 500ml; Total: 1650ml. al5 Outcome: 00:38 Decision to Hospitalize by Provider. sp4 01:00 Admitted to ER Hold. Please see [facility] for further documentation. al5 01:00 Condition: stable 01:00 Instructed on the need for admit, 15:10 Patient left the ED. ph Signatures: Dispatcher [employer] Vickie Kaiser RN RN ph Villegas, Rebecca rv1 Kj Silva MD MD sp4 Lindsey Fuentes Michelle, RN RN me1 Toro Maciel MD MD ec2 Senia Bruce RN RN al5 CAMI DUBON RN RN dd2 Corrections: (The following items were deleted from the chart) 10/26 23:39 23:39 Reassessment: Patient appears in no apparent distress at this time. No changes al5 from previously documented assessment. Patient and/or family updated on plan of care and expected duration. Pain level reassessed. Patient is alert, oriented x 3, equal unlabored respirations, skin warm/dry/pink. al5
--- NOTE | 2024-10-27 02:31 | P.HP ---
Certification for Inpatient Patient admitted to: Inpatient With expected LOS: >2 Midnights Practitioner: I am a practitioner with admitting privileges, knowledge of patient current condition, hospital course, and medical plan of care. Services: Services provided to patient in accordance with Admission requirements found in Title 42 Section 412.3 of the Code of Federal Regulations Patient History Date of Service: 10/27/24 Reason for admission: suspected sepsis History of Present Illness: Patient is a 39 year old female with morbid obesity, HTN AND hyperlipidemia. She is being admitted for sepsis work up. She presents with generalized weakness, myalgia and lethargy. She denies fever, chills or shortness of breath. Associated symptoms include diffuse body pain. Work up in the ER shows a WBC OF 16K. CT chest/abd/pelvis unremarkable. Physical Examination - Physical Exam General: Acute distress, Obese HEENT: Atraumatic, Normocephalic Respiratory: Clear to auscultation bilaterally, Normal air movement Cardiovascular: No edema, Normal pulses, Regular rate/rhythm, Normal S1 S2 Gastrointestinal: Soft and benign, Non-distended, Tenderness Neurological: Normal speech - Studies Laboratory Data (last 24 hrs) 10/26/24 10/26/24 10/26/24 19:47 19:40 19:40 WBC 16.60 H Hgb 9.2 L Hct 31.0 L Plt Count 421 H Sodium 136 Potassium 3.7 BUN 9 Creatinine 0.78 Glucose 97 Total Bilirubin 0.3 AST 31 ALT 31 Alkaline Phosphatase 125 H Assessment and Plan - Problems (Diagnosis) (1) SIRS (systemic inflammatory response syndrome) Current Visit: Yes Status: Acute (2) Morbid obesity Current Visit: Yes Status: Acute - Plan Assessment Patient is a 39 year old female with morbid obesity who is being admitted for sepsis work up. She presents with diffuse body aches, generalized weakness and malaise. She has a wbc of 16K. COVID and influenza tests are negative SIRS Hypothyroidism Morbid obesity HTN PLAN: Will admit inpatient for sepsis work up Follow blood cx Empiric abx with levofloxacin IV fluid infusion Follow procalcitonin Resume rest of home medications upon reconciliation - Advance Directives Does patient have a Living Will: No Does patient have a Durable POA for Healthcare: No
[2024-10-27] MEDS: Levofloxacin 750mg IV 750 MG/150 ML BAG IV SCH ×2 (03:00→08:00)
[2024-10-27] MEDS ORDERED: NA CHLORIDE 0.9% 1,000 ML ONE (05:59)
[2024-10-27] MEDS: NA CHLORIDE 0.9% 1,000 ML IV SCH (06:10)
[2024-10-27 06:33] VITALS: BMI 43.9
[2024-10-27] MEDS ORDERED: Levofloxacin 750mg IV 750 MG/150 ML BAG IV ONE (08:09)
[2024-10-27] MEDS: ONDANSETRON 4 MG/2 ML VIAL IV PRN (08:16)
--- NOTE | 2024-10-27 08:16 | P.PN ---
Date of Service: 10/27/24 Subjective: has been feeling fatigued and rundown last few days, fell asleep at desk reports craving ice chips - eating 10+ cups of ice/day afebrile denies any significant bleeding h/o anemia - has needed IV iron transfusions in past- most recently ~1 year ago Physical Exam: GEN: Alert, oriented, NAD CV: Regular rate and rhythm, no edema Pulm: Nonlabored respirations on room air, clear bilaterally ABD: soft, nontender, nondistended5 Neuro: Normal speech, normal affect Problem List: Severe iron deficiency anemia, acute on chronic Generalized weakness Leukocytosis, improving Hypertension Hyperlipidemia Hx of anemia Severe iron deficiency anemia, acute on chronic Generalized weakness Leukocytosis, improving on admission, presents with generalized weakness and diffuse body aches over the last few days. Denies chest pain/SOB. No urinary symptoms. given cefepime, vanc and 1L IVF in ED. CT head (10/26): mild tonsillar ectopia otherwise negative. CT chest/abd (10/26): Bulky appearance of the uterine fundus, ?possible fibroid. Calcific focus probably within folds of the gallbladder fundus, may represent a calculus reports has had transvaginal U/S done by DUTY OFFICER in last few years, and a lesion/fibroid was seen, patient describes it as they commented on something but was too small to do anything about at the time recommend f/u outpatient UA unremarkable. Follow blood cultures 10/27 - Iron studies: iron 20, tsat% 4.5 Dot not suspect infection. No clear source. DC antibiotics Weakness/fatigue likely related to iron deficiency anemia dc IV fluids Start IV iron (250mg) Hypertension Hyperlipidemia confirm home meds, restart as appropriate Hypothyroidism Hasn't taken her home medications for several days per ER notes. TSH 6.360, Free t4 0.74, Free t3: 2.43 10/27 - resume home synthroid VTE: avoid given anemia Code: Full Dispo: Home, ~1 day Time Spent Managing Pts Care (In Minutes): 55
[2024-10-27] MEDS ORDERED: ONDANSETRON 4 MG/2 ML VIAL ONE (08:34)
[2024-10-27 08:37] LABS: Absolute Eosinophils 0.1 K/uL (0-0.5); Absolute Lymphocytes (CBC) 1.7 K/uL (0.7-4.9); Absolute Monocytes 0.6 K/uL (0.1-1.3); Basophils % 0.3 % (0-1.3); Eosinophils % 0.8 % (0-4.4); Hematocrit 27.9 % (36.0-45.0); Hemoglobin 8.3 g/dL (12.0-15.0); Lymphocytes % 15.1 % (15.3-44.8); MCH 18.2 pg (27.0-35.0); MCHC 29.5 g/dL (32.0-36.0); MCV 61.6 fL (80-100); MPV 8.1 fL (7.6-11.3); Monocytes % 5.4 % (3.3-12.3); Neutrophils % 78.4 % (41.7-73.7); Nucleated Red Blood Cells % 0.1 % (0-0); Percent Reticulocyte Count 1.87 % (0.4-2.05); Platelets 390 thou/uL (152-406); RBC Red Blood Cell Count 4.53 M/uL (3.86-4.86); Red Cell Distribution Width 19.4 % (12.1-15.2)
[2024-10-27 08:53] LABS: Albumin/Globulin Ratio 0.8 (1.1-1.8); Anion Gap 8.1 mEq/L (5.0-15.0); Bilirubin Total 0.6 mg/dL (0.2-1.0); Ferritin 3.8 ng/mL (8-252); Globulin 3.7 g/dL (2.3-3.5); Magnesium 2.6 mg/dL (1.6-2.4); Potassium 4.1 mEq/L (3.5-5.1); Protein, Total 6.7 g/dL (6.4-8.2)
[2024-10-27] MEDS: LABETALOL HCL 100 MG TAB PO SCH (14:00)
[2024-10-27] MEDS ORDERED: LABETALOL HCL 100 MG TAB ONE (14:06)
[2024-10-27] MEDS: SOD FERRIC GLUC COMPLX/SUCROSE 250 MG in NA CHLORIDE 0.9% 250 ML IV SCH (15:39)
[2024-10-27] MEDS: NIFEDIPINE XL 30 MG TABLET PO PRN (20:04)
[2024-10-28 05:26] LABS: Absolute Basophils 0.1 K/uL (0-0.5); Absolute Eosinophils 0.2 K/uL (0-0.5); Absolute Lymphocytes (CBC) 1.7 K/uL (0.7-4.9); Absolute Monocytes 0.7 K/uL (0.1-1.3); Absolute Neutrophil 9.5 K/uL (1.8-8.0); Basophils % 0.6 % (0-1.3); Eosinophils % 1.4 % (0-4.4); Hematocrit 25.8 % (36.0-45.0); Hemoglobin 7.6 g/dL (12.0-15.0); Lymphocytes % 13.7 % (15.3-44.8); MCH 18.1 pg (27.0-35.0); MCHC 29.6 g/dL (32.0-36.0); MCV 61.3 fL (80-100); MPV 8.3 fL (7.6-11.3); Monocytes % 5.8 % (3.3-12.3); Neutrophils % 78.5 % (41.7-73.7); Nucleated Red Blood Cells % 0.2 % (0-0); Platelets 348 thou/uL (152-406); RBC Red Blood Cell Count 4.21 M/uL (3.86-4.86); Red Cell Distribution Width 19.5 % (12.1-15.2)
[2024-10-28 05:45] LABS: Anion Gap 10.7 mEq/L (5.0-15.0); Potassium 3.7 mEq/L (3.5-5.1)
[2024-10-28] MEDS: LEVOTHYROXINE SOD 0.075 MG TAB PO SCH (06:14)
--- NOTE | 2024-10-28 08:39 | EKG ---
Test Date: 2024-10-26 Test Time: 21:43:42 Principal Account Clerk: RV MEASUREMENT RESULTS: Intervals: Rate: 123 OK: 112 QRSD: 84 QT: 336 QTc: 481 [place]: P: 68 OK: 112 QRS: -32 T: 54 INTERPRETIVE STATEMENTS: Sinus tachycardia Left axis deviation Moderate voltage criteria for LVH, may be normal variant Cannot rule out Septal infarct, age undetermined Abnormal ECG Compared to ECG 10/26/2024 19:48:56 Myocardial infarct finding now present Sinus rhythm no longer present Electronically Signed On 10-28-24 08:36:27 CDT by Murphy Perez
--- NOTE | 2024-10-28 08:40 | EKG ---
Test Date: 2024-10-26 Test Time: 19:48:56 Freight Router: RV MEASUREMENT RESULTS: Intervals: Rate: 98 CT: 116 QRSD: 86 QT: 366 QTc: 467 Reading: P: 61 CT: 116 QRS: -31 T: 54 INTERPRETIVE STATEMENTS: Normal sinus rhythm Left axis deviation Voltage criteria for left ventricular hypertrophy Abnormal ECG No previous ECG available for comparison Electronically Signed On 10-28-24 08:36:41 CDT by Murphy Perez
--- NOTE | 2024-10-28 09:03 | P.PN ---
Date of Service: 10/28/24 Subjective: remains symptomatic - continues with tachycardia, weakness, dizziness, no bleeding patient concerned she might be developing a yeast infection - some discharge/discomfort overnight, did not have these symptoms at home tolerating iron infusion afebrile Physical Exam: GEN: Alert, oriented, fatigued appearing CV: sinus tachycardia (110), no edema Pulm: Nonlabored respirations on room air, clear bilaterally ABD: soft, nontender, nondistended5 Neuro: Normal speech, normal affect Problem List: Severe iron deficiency anemia, acute on chronic Generalized weakness Leukocytosis, improving Hypertension Hyperlipidemia Hx of anemia Severe iron deficiency anemia, acute on chronic Generalized weakness Leukocytosis, improving on admission, presents with generalized weakness and diffuse body aches over the last few days. Denies chest pain/SOB. No urinary symptoms. given cefepime, vanc and 1L IVF in ED. CT head (10/26): mild tonsillar ectopia otherwise negative. CT chest/abd (10/26): Bulky appearance of the uterine fundus, ?possible fibroid. Calcific focus probably within folds of the gallbladder fundus, may represent a calculus reports has had transvaginal U/S done by LINEMAN APPRENTICE in last few years, and a lesion/fibroid was seen, patient describes it as they commented on something but was too small to do anything about at the time recommend f/u outpatient UA unremarkable. Follow blood cultures 10/27 - Iron studies: iron 20, tsat% 4.5 Has Hx of anemia and has needed IV iron transfusions in past- most recently ~1 year ago Weakness/fatigue likely related to iron deficiency anemia Don't not suspect infection. No clear source. DC antibiotics dc IV fluids Start IV iron (250mg) 10/28 - Hgb/WBC slightly worse. symptomatic - continues with tachycardia, weakness, dizziness. afebrile will transfuse 1uPRBC given vitals / symptoms Repeat H&H post transfusion. Repeat labs in morning oral Diflucan 150 mg x1 ordered - patient concerned that she is developing a yeast infection; UA+ trace yeast Hypertension Hyperlipidemia confirm home meds, restart as appropriate Hypothyroidism Hasn't taken her home medications for several days per ER notes. TSH 6.360, Free t4 0.74, Free t3: 2.43 10/27 - resumed home synthroid VTE: avoid given anemia Code: Full Dispo: Home, ~1 day Pending tachycardia improves, dizziness resolves, repeat labs improve. Time Spent Managing Pts Care (In Minutes): 55
[2024-10-28] MEDS: FLUCONAZOLE 100 MG TAB PO ONE (09:30)
[2024-10-28] MEDS: ACETAMINOPHEN 325 MG TABLET PO PRN (09:44)
[2024-10-28] MEDS ORDERED: NA CHLORIDE 0.9% 250 ML IV SCH (10:00)
[2024-10-28 21:34] LABS: Hematocrit 28.7 % (36.0-45.0); Hemoglobin 8.7 g/dL (12.0-15.0)
[2024-10-29 04:28] LABS: Hematocrit 29.1 % (36.0-45.0); Hemoglobin 8.9 g/dL (12.0-15.0); MCH 19.4 pg (27.0-35.0); MCHC 30.4 g/dL (32.0-36.0); MCV 63.7 fL (80-100); MPV 8.2 fL (7.6-11.3); Platelets 346 thou/uL (152-406); RBC Red Blood Cell Count 4.57 M/uL (3.86-4.86); Red Cell Distribution Width 20.5 % (12.1-15.2)
[2024-10-29 05:09] VITALS: TEMP 97.6
[2024-10-29 05:12] LABS: Anion Gap 8.8 mEq/L (5.0-15.0); Magnesium 2.3 mg/dL (1.6-2.4); Potassium 3.8 mEq/L (3.5-5.1)
[2024-10-29] MEDS: SOD FERRIC GLUC COMPLX/SUCROSE 250 MG in NA CHLORIDE 0.9% 250 ML IV ONE (08:01)
--- NOTE | 2024-10-29 08:47 | P.DS ---
Admission Date: 10/27/24 Discharge Date: 10/29/24 Reason for Admission: suspected sepsis Brief History of Present Illness: 39yo F, PMH: morbid obesity, HTN AND hyperlipidemia. She is being admitted for sepsis work up. She presents with generalized weakness, myalgia and lethargy. She denies fever, chills or shortness of breath. Associated symptoms include diffuse body pain. Work up in the ER shows a WBC OF 16K. CT chest/abd/pelvis unremarkable. Hospital Course: Problem List: Severe iron deficiency anemia, acute on chronic Generalized weakness Leukocytosis, improving Hypertension Hyperlipidemia Hx of anemia Physician discharge instructions: Patient presented with generalized weakness and diffuse body aches over the last few days, secondary to acute on chronic iron deficiency anemia. Iron studies this hospitalization were consistent with severe iron deficiency anemia. She denied any obvious bleeds or black tarry stools. She received 2 bags of IV iron (250 mg) in addition to 1 blood transfusion on and had improvement of her symptoms. Hemoglobin remained stable in high 8s for rest of her hospitalization post transfusion. She felt her strength/endurance slowly improving with time. Patient was feeling better, weakness/fatigue improved, and deemed stable for discharge. Advised patient to repeat blood work in ~1 week to monitor hemoglobin. Repeat iron studies in 2-3 months to recheck iron levels. Hemoglobin on day of discharge: 8.9 Iron studies 10/27 Iron 20 TIBC 440 Transferrin 314 Transferrin %sat 4.5 During her hospitalization, patient was concerned that she was developing a yeast infection. Urinalysis was positive for trace yeast and she did have a mild leukocytosis. Patient received 1 dose of oral diflucan 150 mg on 10/28 and is to complete 1 more dose of diflucan on 10/31. CT chest/abdomen/pelvis (10/26): Bulky appearance of the uterine fundus, especially along the anterior wall, could relate to an underlying fibroid. Patient reports has had transvaginal U/S done by DOMESTIC HELPER in last few years, and a lesion/fibroid was seen. Patient describes it as they commented on something but was too small to do anything about at the time. Advised patient to follow up with Gynecology in near future for further management. Medications: Diflucan 150 mg x1 dose - Take pill on 10/31/24. iron tablets medication refill sent for labetalol and levothyroxine - pt reported she was out Follow up: PCP 3-5 days Gynecology in the near future Please call to schedule / confirm appointments Physical Exam: GEN: Alert, oriented, NAD CV: Regular rate and rhythm, no edema Pulm: Nonlabored respirations on room air, clear bilaterally ABD: soft, nontender, nondistended Neuro: Normal speech, normal affect Vital Signs/Physical Exam: Temp Pulse Resp BP Pulse Ox 97.6 F 81 20 140/80 97 10/29/24 04:00 10/29/24 08:00 10/29/24 04:00 10/29/24 08:00 10/29/24 04:00 Laboratory Data at Discharge: WBC 11.50 thou/uL (4.3-10.9) H 10/29/24 04:04 Hgb 8.9 g/dL (12.0-15.0) L 10/29/24 04:04 Hct 29.1 % (36.0-45.0) L 10/29/24 04:04 Plt Count 346 thou/uL (152-406) 10/29/24 04:04 Sodium 140 mEq/L (136-145) 10/29/24 04:04 Potassium 3.8 mEq/L (3.5-5.1) 10/29/24 04:04 BUN 6 mg/dL (7-18) L 10/29/24 04:04 Creatinine 0.73 mg/dL (0.55-1.02) 10/29/24 04:04 Glucose 93 mg/dL (74-106) 10/29/24 04:04 Magnesium 2.3 mg/dL (1.6-2.4) 10/29/24 04:04 Total Bilirubin 0.6 mg/dL (0.2-1.0) 10/27/24 08:14 AST 16 U/L (15-37) 10/27/24 08:14 ALT 26 U/L (13-56) 10/27/24 08:14 Alkaline Phosphatase 98 U/L (45-117) D 10/27/24 08:14 Triglycerides 124 mg/dL (<150) 10/28/24 03:56 Cholesterol 152 mg/dL (<200) 10/28/24 03:56 HDL Cholesterol 52 mg/dL (40-60) 10/28/24 03:56 Cholesterol/HDL Ratio 2.92 03/27/25 03:56 Home Medications: Nifedipine Xl [Procardia Xl*] 30 mg PO PRN PRN 10/27/24 Ferrous Sulfate 325 mg PO DAILY 30 Days #30 tab 10/29/24 Fluconazole 150 mg PO ONCE 1 Days #1 tab 10/29/24 Labetalol HCl [Trandate] 300 mg PO TID 30 Days #90 tab 10/29/24 Levothyroxine [Synthroid*] 0.075 mg PO DAILY 30 Days #30 tab 10/29/24 New Medications: Ferrous Sulfate 325 mg PO DAILY 30 Days #30 tab Fluconazole 150 mg PO ONCE 1 Days #1 tab Levothyroxine [Synthroid*] 0.075 mg PO DAILY 30 Days #30 tab Labetalol HCl [Trandate] 300 mg PO TID 30 Days #90 tab Physician Discharge Instructions: Physician discharge instructions: Patient presented with generalized weakness and diffuse body aches over the last few days, secondary to acute on chronic iron deficiency anemia. Iron studies this hospitalization were consistent with severe iron deficiency anemia. She denied any obvious bleeds or black tarry stools. She received 2 bags of IV iron (250 mg) in addition to 1 blood transfusion on 10/28 and had improvement of her symptoms. Hemoglobin remained stable in high 8s for rest of her hospitalization post transfusion. She felt her strength/endurance slowly improving with time. Patient was feeling better, weakness/fatigue improved, and deemed stable for discharge. Advised patient to repeat blood work in ~1 week to monitor hemoglobin. Repeat iron studies in 2-3 months to recheck iron levels. Hemoglobin on day of discharge: 8.9 Iron studies 10/27 Iron 20 TIBC 440 Transferrin 314 Transferrin %sat 4.5 During her hospitalization, patient was concerned that she was developing a yeast infection. Urinalysis was positive for trace yeast and she did have a mild leukocytosis. Patient received 1 dose of oral diflucan 150 mg on 10/28 and is to complete 1 more dose of diflucan on 10/31. CT chest/abdomen/pelvis (10/26): Bulky appearance of the uterine fundus, especially along the anterior wall, could relate to an underlying fibroid. Patient reports has had transvaginal U/S done by DOMESTIC HELPER in last few years, and a lesion/fibroid was seen. Patient describes it as they commented on something but was too small to do anything about at the time. Advised patient to follow up with Gynecology in near future for further management. Medications: Diflucan 150 mg x1 dose - Take pill on 10/31/24. iron tablets Follow up: PCP 3-5 days Gynecology in the near future Please call to schedule / confirm appointments Followup: NONE,NONE [Primary Care Provider] - Time spent managing pt's care (in minutes): 45
[2024-10-29 08:48] VITALS: BP 119/65
[2024-10-29 09:36] VITALS: O2SAT 99
== END 2024-10-29 10:34 | disposition home or self-care (01) | DRG 872 ==
LOC: ER 17:47 → ERHOLD 10-27 02:22 → 2ND 10-27 14:05
PROVIDERS: ADMIT Internal Medicine; ATTEND Hospitalist
PROC: 30233N1 Transfusion of Nonautologous Red Blood Cells into Peripheral Vein, Percutaneous Approach (ICD-10-PCS; principal; 2024-10-28)
DX: A41.9 Sepsis, unspecified organism (principal); Z68.41 Body mass index [BMI] 40.0-44.9, adult; R65.20 Severe sepsis without septic shock; E66.01 Morbid (severe) obesity due to excess calories; I16.0 Hypertensive urgency; E03.9 Hypothyroidism, unspecified; D50.9 Iron deficiency anemia, unspecified; I10 Essential (primary) hypertension; E78.5 Hyperlipidemia, unspecified; B37.9 Candidiasis, unspecified; Z88.0 Allergy status to penicillin; Z88.5 Allergy status to narcotic agent; Z11.52 Encounter for screening for COVID-19; Z79.890 Hormone replacement therapy
CPT/HCPCS: 36415; 36430; 70450; 71045; 71260; 74177; 80048; 80053; 80061; 80076; 81001; 81025; 82550; 82728; 83540; 83605; 83735; 84145; 84439; 84443; 84466; 84481; 84484; 85014; 85018; 85025; 85027; 85044; 86850; 86900; 86901; 86920; 87040; 87428; 93005; 99285; J0360; J0692; J2405; J2765; J2916; J3370; J3475; J7030; J7040; J7050; P9016; Q9967

== ENCOUNTER 2025-04-22 19:30 | Emergency (ER) | payer OTHER ==
[2025-04-22 20:45] LABS: Absolute Lymphocytes (CBC) 2.4 K/uL (0.7-4.9); Hematocrit 34.7 % (36.0-45.0); Hemoglobin 11.1 g/dL (12.0-15.0); MCH 24.0 pg (27.0-35.0); MCHC 31.9 g/dL (32.0-36.0); MCV 75.2 fL (80-100); MPV 7.8 fL (7.6-11.3); Nucleated RBC Absolute Count 0.0 (0-0); Nucleated Red Blood Cells % 0.0 % (0-0); RBC Red Blood Cell Count 4.61 M/uL (3.86-4.86); White Blood Count 9.50 thou/uL (4.3-10.9)
[2025-04-22 21:04] LABS: Anion Gap 7.8 mEq/L (5.0-15.0); BUN Blood Urea Nitrogen 8.0 mg/dL (7-18); Glucose Level 100.0 mg/dL (74-106); Magnesium 2.0 mg/dL (1.6-2.4); NT PRO-BNP 362.0 pg/mL (<125); Potassium 3.8 mEq/L (3.5-5.1); Troponin High Sensitivity 17.4 pg/mL (<58.9)
--- NOTE | 2025-04-22 21:14 | RAD REPORT ---
EXAM: Chest Single View HISTORY: 40 years Female GENERAL WEAKNESS COMPARISON: 10/26/2024 FINDINGS: LUNGS/PLEURA: The lungs are clear. No pleural effusions or pneumothorax. No pulmonary edema. CARDIAC/MEDIASTINUM: Stable size and configuration. UPPER ABDOMEN: No significant abnormality. BONES: No acute abnormality. LINES/TUBES/OTHER: N/A IMPRESSION: No evidence of acute cardiopulmonary disease.
[2025-04-22] MEDS ORDERED: HYDRALAZINE HCL 20 MG/ML VIAL ONE (21:15)
[2025-04-22 21:34] LABS: PT Prothrombin Time 10.9 SECONDS (10-13.0); Protime INR 0.96
[2025-04-22 22:02] LABS: Ferritin 5.1 ng/mL (8-252); Iron 23.0 ug/dL (50-170); Transferrin 274.0 mg/dL (200-360)
[2025-04-22 22:06] LABS: Thyroid Stimulating Hormone 6.16 uIU/mL (0.358-3.740)
[2025-04-23] MEDS ORDERED: HYDRALAZINE HCL 20 MG/ML VIAL ONE (00:50)
[2025-04-23] MEDS ORDERED: AMLODIPINE 10 MG TAB ONE (00:50)
--- NOTE | 2025-04-23 00:57 | EDPHYS ---
Physician Documentation [facility] Name: Ani Mcclendon Age: 40 yrs Sex: Female : 1985 Arrival Date: 04/22/2025 Time: 19:30 Bed 13 Private MD: ED Physician Wes Hurd HPI: 04/22 19:55 This 40 yrs old Female presents to ER via Ambulatory with complaints of Weakness, cp CHILLS. 19:55 The patient presents to the emergency department with weakness of the entire body, cp generalized weakness. 19:55 Onset: The symptoms/episode began/occurred this past Friday. cp 19:55 Associated signs and symptoms: Pertinent positives: fatigue and chills. Patient's cp baseline: Neuro: alert and fully oriented, Motor: no deficits, Ambulation: walks without assistance, Speech: normal. Patient reports PMHX significant for anemia and concerned blood count low to point of her needing a transfusion. no vaginal bleeding, no black stools, no blood in stool. PARTS COUNTERPERSON: 19:43 LMP 04/09/2025, unknown dd2 Historical: - Allergies: 19:43 Codeine; dd2 19:43 PENICILLINS; dd2 - PMHx: 19:43 Hypertensive disorder; spinal injury; Anemia; dd2 - PSHx: 19:43 section; Ligation of fallopian tube; dd2 - Immunization history:: Adult Immunizations up to date. - Infectious Disease History:: Denies. - Social history:: Smoking status: Patient denies any tobacco usage or history of. ROS: 20:00 Constitutional: Positive for chills, Negative for body aches, fever, poor PO intake, cp 20:00 Eyes: Negative for injury, pain, redness, and discharge, cp 20:00 ENT: Negative for drainage from ear(s), ear pain, sore throat, difficulty swallowing, difficulty handling secretions, 20:00 Cardiovascular: Negative for chest pain, palpitations, 20:00 Respiratory: Negative for cough, shortness of breath, wheezing, 20:00 Abdomen/GI: Negative for abdominal pain, vomiting, diarrhea, constipation, 20:00 Neuro: Positive for weakness, Negative for altered mental status, syncope, near syncope, 20:00 All other systems are negative, Exam: 20:03 Constitutional: The patient appears in no acute distress, alert, awake, cp non-diaphoretic, non-toxic, well developed, well nourished, obese, 20:03 Head/Face: Normocephalic, atraumatic. cp 20:03 Eyes: Periorbital structures: appear normal, Conjunctiva: normal, no exudate, no injection, Sclera: no appreciated abnormality, Lids and lashes: appear normal, bilaterally, 20:03 ENT: External ear(s): are unremarkable, Nose: is normal, Mouth: Lips: moist, Oral mucosa: moist, Posterior pharynx: Airway: no evidence of obstruction, patent, 20:03 Neck: ROM/movement: is normal, is supple, without pain, no range of motions limitations, 20:03 Chest/axilla: Inspection: normal, 20:03 Cardiovascular: Rate: normal, Rhythm: regular, Edema: is not appreciated, JVD: is not appreciated, 20:03 Respiratory: the patient does not display signs of respiratory distress, Respirations: normal, no use of accessory muscles, no retractions, labored breathing, is not present, Breath sounds: are clear throughout, no decreased breath sounds, no stridor, no wheezing, 20:03 Abdomen/GI: Inspection: abdomen appears normal, Palpation: abdomen is soft and non-tender, in all quadrants, 20:03 Back: pain, is absent, ROM is normal, 20:03 Neuro: Orientation: to person, place \T\ time. Mentation: is normal, Motor: moves all fours, strength is normal, Sensation: is normal, Gait: is steady, at a normal pace, without difficulty, 20:58 ECG was reviewed by the Attending Physician. cp Vital Signs: 19:42 BP 185 / 116; Pulse 88; Resp 16; Temp 98.1; Pulse Ox 100% on R/A; Weight 97.52 kg; dd2 Height 5 ft. 0 in. ; Pain 0/10; 21:11 BP 163 / 102; Pulse 93; Resp 18; Pulse Ox 100% ; kt5 22:21 BP 185 / 95; Pulse 99; Resp 18; Pulse Ox 99% ; kt5 23:29 BP 195 / 100; Pulse 87; Resp 18; Pulse Ox 99% ; kt5 04/23 00:27 BP 172 / 133; Pulse 89; Resp 18; Pulse Ox 99% ; kt5 00:53 BP 178 / 87; Pulse 91; Resp 18; Temp 98.2; Pulse Ox 100% ; Pain 0/10; kt5 04/22 19:42 Body Mass Index 41.99 (97.52 kg, 152.4 cm) dd2 09 19:42 Pain Scale: Adult dd2 00:53 Pain Scale: Adult kt5 MDM: 04/22 19:50 Medical Screening Exam initiated 04/23 00:55 Data reviewed: vital signs, nurses notes, lab test result(s), EKG, radiologic studies, cp plain films, and as a result, I will discharge patient. 00:55 I considered the following discharge prescriptions or medication management in the emergency department Medications were administered in the Emergency Department. See MAR. Independent interpretation of the following test(s) in the Emergency Department EKG: See my EKG interpretation above. Counseling: I had a detailed discussion with the patient and/or guardian regarding the historical points, exam findings, and any diagnostic results supporting the discharge/admit diagnosis, lab results, radiology results, the need for outpatient follow up, a family practitioner, to return to the emergency department if symptoms worsen or persist or if there are any questions or concerns that arise at home. Response to treatment: the patient's symptoms have mildly improved after treatment, and as a result, I will discharge patient. 04/22 19:52 Order name: Basic Metabolic Panel; Complete Time: 21:16 04/22 21:16 Interpretation: Normal except: CL 108; GFR 73. 04/22 19:52 Order name: CBC with Diff; Complete Time: 20:48 04/22 20:48 Interpretation: Normal except: HGB 11.1; HCT 34.7; MCV 75.2; MCH 24.0; MCHC 31.9; RDW cp 18.6. 04/22 19:52 Order name: Magnesium; Complete Time: 21:16 04/22 19:52 Order name: NT PRO-BNP; Complete Time: 21:16 04/22 19:52 Order name: PT-INR; Complete Time: 22:30 04/22 19:52 Order name: Troponin HS; Complete Time: 21:16 04/22 20:50 Order name: TSH; Complete Time: 22:30 04/22 22:31 Interpretation: Reviewed. 04/22 20:50 Order name: T3 Free; Complete Time: 22:30 cp 04/22 20:50 Order name: Ferritin; Complete Time: 22:30 cp 04/22 22:31 Interpretation: BETTIE 5.1; Reviewed. cp 04/22 20:50 Order name: TIBC; Complete Time: 22:30 cp 04/22 22:31 Interpretation: Normal except: IRON 23.0; %SAT 6.0. cp 04/22 22:08 Order name: T4 Free; Complete Time: 22:30 EDMS 04/22 19:52 Order name: XRAY Chest (1 view); Complete Time: 21:16 cp 04/22 19:52 Order name: Cardiac monitoring; Complete Time: 20:44 cp 04/22 19:52 Order name: EKG - Nurse/Tech; Complete Time: 20:53 cp 04/22 19:52 Order name: IV Saline Lock; Complete Time: 20:44 cp 04/22 19:52 Order name: Labs collected and sent; Complete Time: 20:44 04/22 19:52 Order name: O2 Per Protocol; Complete Time: 20:44 cp 04/22 19:52 Order name: O2 Sat Monitoring; Complete Time: 21:04 cp EC/19 20:58 Rate is 87 beats/min. Rhythm is regular. ME interval is normal at 122 msec. QRS cp interval is normal. QT interval is normal. T waves are Inverted in lead aVR. Interpreted by me. Reviewed by me. Administered Medications: 21:21 Drug: hydrALAZINE IVP 10 mg IVP once Route: IVP; Site: left forearm; kt5 04/23 00:48 Follow up: Response: No adverse reaction; Blood pressure is lowered kt5 01:05 Not Given (blood pressure goodd): [id number] mg IVP once kt5 01:05 Not Given (blood pressure good): [id number] mg PO once kt5 Disposition: 07:39 Co-signature as Attending Physician, Wes Hurd DO I reviewed the patient's care tt7 provided by the Advanced Practice Provider and agree with the diagnosis and treatment plan. Disposition Summary: 04/23/25 00:56 Discharge Ordered Notes: Location: Home cp Problem: new cp Symptoms: have improved cp Condition: Stable cp Diagnosis - Other malaise and fatigue cp - Iron deficiency anemia, unspecified cp - Hypertensive heart disease without heart failure cp - Hypothyroidism, unspecified cp Followup: cp - With: Private Physician - When: 1 week - Reason: Recheck today's complaints Discharge Instructions: - Discharge Summary Sheet cp - Iron Deficiency Anemia, Adult cp - Anemia cp - Iron-Rich Diet cp - Hypertension, Adult cp - Hypothyroidism cp - Aspirin and Your Heart cp - Form - Blood Pressure Record Sheet cp - How to Take Your Blood Pressure cp Forms: - Medication Reconciliation Form cp - Antibiotic Education cp - Prescription Opioid Use cp - Patient Portal Instructions cp - Leadership Thank You Letter cp Prescriptions: - Ferrous Sulfate 325 mg (65 mg Iron) Oral tablet - take 1 tablet ORAL route every 12 hours; 90 tablet; Refills: 0, Product cp Selection Permitted Signatures: Dispatcher [employer] EDMS Kieran Kelly PA-C PA-C cp DAVIS, DIANA RN RN dd2 Ayah Garcia RN RN kt5 Wes Hurd, DO tt7 Corrections: (The following items were deleted from the chart) 04/22 19:52 19:52 BASIC METABOLIC PANEL+C.LAB.BRZ ordered. EDMS EDMS 19:52 19:52 CBC+H.LAB.BRZ ordered. EDMS EDMS 19:52 19:52 MAGNESIUM+C.LAB.BRZ ordered. EDMS EDMS 19:52 19:52 PROBNP+C.LAB.BRZ ordered. EDMS EDMS 19:52 19:52 PROTIME (+INR)+COAG.LAB.BRZ ordered. EDMS EDMS 19:52 19:52 Troponin High Sensitivity+C.LAB.BRZ ordered. EDMS EDMS 19:53 19:53 Chest Single View+RAD.RAD.BRZ ordered. EDMS EDMS 20:50 20:50 THYROID STIMULAT HORMONE+C.LAB.BRZ ordered. EDMS EDMS 20:50 20:50 T3 FREE+C.LAB.BRZ ordered. EDMS EDMS 20:50 20:50 FERRITIN+C.LAB.BRZ ordered. EDMS EDMS 20:50 20:50 TRANSFERRIN SAT/IRON BINDING+C.LAB.BRZ ordered. EDMS EDMS
--- NOTE | 2025-04-23 00:57 | ER ---
Nurse's Notes [facility] Name: Ani Mcclendon Age: 40 yrs Sex: Female : 1985 Arrival Date: 04/22/2025 Time: 19:30 Bed 13 Private MD: Diagnosis: Other malaise and fatigue;Iron deficiency anemia, unspecified;Hypertensive heart disease without heart failure;Hypothyroidism, unspecified Presentation: 04/22 19:42 Chief complaint: Patient states: FEELING WEAK, TIRED AND COLD SINCE FRIDAY. PT REPORTS dd2 HAVING THESE SYMPTOMS AND NEEDING IRON INFUSIONS IN THE PAST. Coronavirus screen: At this time, the client does not indicate any symptoms associated with coronavirus-19. Ebola Screen: No symptoms or risks identified at this time. Initial Sepsis Screen: Does the patient meet any 2 criteria? No. Patient's initial sepsis screen is negative. Does the patient have a suspected source of infection? No. Patient's initial sepsis screen is negative. Risk Assessment: Do you want to hurt yourself or someone else? Patient reports no desire to harm self or others. Onset of symptoms was April 19, 2025. 19:42 Method Of Arrival: Ambulatory dd2 19:42 Acuity: LAZARO 3 dd2 Triage Assessment: 19:43 General: Appears in no apparent distress. well groomed, well nourished, Behavior is dd2 calm, cooperative, appropriate for age. Pain: Denies pain. 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 - Infectious Disease History:: Denies. - Social history:: Smoking status: Patient denies any tobacco usage or history of. Screenin:[address] [facility] ED Fall Risk Assessment (Adult) History of falling in the last 3 months, kt5 including since admission No falls in past 3 months (0 pts) Confusion or Disorientation No (0 pts) Intoxicated or Sedated No (0 pts) Impaired Gait No (0 pts) Mobility Assist Device Used No (0 pt) Altered Elimination No (0 pt) Score/Fall Risk Level 0 - 2 = Low Risk Oriented to surroundings, Maintained a safe environment. Abuse screen: Denies threats or abuse. Nutritional screening: No deficits noted. Tuberculosis screening: No symptoms or risk factors identified. Assessment: 20:12 General: Appears in no apparent distress. comfortable, Behavior is calm, cooperative, kt5 appropriate for age. General: Reports fatigue for 2-3 days, generalized weakness and fatigue for 2 days. Pain: Denies pain. Neuro: No deficits noted. Abbott Agitation-Sedation Scale (RASS): 0 - Alert and Calm Level of Consciousness is awake, alert, obeys commands, Oriented to person, place, time, situation, Appropriate for age. Cardiovascular: No deficits noted. Denies chest pain, Heart tones S1 S2 present Capillary refill < 3 seconds Clubbing of nail beds is absent JVD is absent Pulses are all present. Edema is absent. Respiratory: Reports shortness of breath on exertion Airway is patent Trachea midline Respiratory effort is even, unlabored, Respiratory pattern is regular, symmetrical. GI: No deficits noted. No signs and/or symptoms were reported involving the gastrointestinal system. Abdomen is round non-distended, Bowel sounds present X 4 quads. Abd is soft and non tender X 4 quads. EENT: No deficits noted. No signs and/or symptoms were reported regarding the EENT system. Derm: No deficits noted. No signs and/or symptoms reported regarding the dermatologic system. Skin is intact, is fragile, Skin is dry, Skin is pink, warm \T\ dry. Musculoskeletal: No deficits noted. No signs and/or symptoms reported regarding the musculoskeletal system. 21:11 Reassessment: Patient appears in no apparent distress at this time. Patient and/or kt5 family updated on plan of care and expected duration. Pain level reassessed. Patient is alert, oriented x 3, equal unlabored respirations, skin warm/dry/pink. Patient denies pain at this time. 22:17 General: pt up ambulating to rr w/o complications. kt5 22:21 Reassessment: Patient appears in no apparent distress at this time. No changes from kt5 previously documented assessment. Patient and/or family updated on plan of care and expected duration. Pain level reassessed. Patient is alert, oriented x 3, equal unlabored respirations, skin warm/dry/pink. Patient denies pain at this time. Patient states feeling better. Patient states symptoms have improved. 23:29 Reassessment: Patient appears in no apparent distress at this time. No changes from kt5 previously documented assessment. Patient and/or family updated on plan of care and expected duration. Pain level reassessed. Patient is alert, oriented x 3, equal unlabored respirations, skin warm/dry/pink. Patient denies pain at this time. Patient states feeling better. Patient states symptoms have improved. 04/23 00:27 Reassessment: Patient appears in no apparent distress at this time. No changes from kt5 previously documented assessment. Patient and/or family updated on plan of care and expected duration. Pain level reassessed. Patient is alert, oriented x 3, equal unlabored respirations, skin warm/dry/pink. Patient denies pain at this time. Patient states feeling better. Critical care time stopped, patient has stabilized. Vital Signs: 04/22 19:42 BP 185 / 116; Pulse 88; Resp 16; Temp 98.1; Pulse Ox 100% on R/A; Weight 97.52 kg; dd2 Height 5 ft. 0 in. ; Pain 0/10; 21:11 BP 163 / 102; Pulse 93; Resp 18; Pulse Ox 100% ; kt5 22:21 BP 185 / 95; Pulse 99; Resp 18; Pulse Ox 99% ; kt5 23:29 BP 195 / 100; Pulse 87; Resp 18; Pulse Ox 99% ; kt5 04/23 00:27 BP 172 / 133; Pulse 89; Resp 18; Pulse Ox 99% ; kt5 00:53 BP 178 / 87; Pulse 91; Resp 18; Temp 98.2; Pulse Ox 100% ; Pain 0/10; kt5 04/22 19:42 Body Mass Index 41.99 (97.52 kg, 152.4 cm) dd2 04/22 19:42 Pain Scale: Adult dd2 00:53 Pain Scale: Adult kt5 ED Course: 04/22 19:33 Patient arrived in ED. sj2 19:38 [facility] cp 19:38 Wes Hurd DO is Attending Physician. cp 19:43 Triage completed. dd2 19:43 Arm band placed on left wrist. dd2 20:12 Patient has correct armband on for positive identification. Bed in low position. Call kt5 light in reach. Side rails up X 1. Adult w/ patient. Client placed on continuous cardiac and pulse oximetry monitoring. NIBP monitoring applied. monitoring tech on. Door closed. Noise minimized. Warm blanket given. Pillow given. 20:12 No provider procedures requiring assistance completed. Inserted saline lock: 18 gauge kt5 in left wrist, using aseptic technique. Blood collected. Flushed with 10 mL NS. 20:44 Ayah Garcia, RN is Primary Nurse. kt5 20:44 Basic Metabolic Panel Sent. kt5 20:44 CBC with Diff Sent. kt5 20:44 Magnesium Sent. kt5 20:44 NT PRO-BNP Sent. kt5 20:44 PT-INR Sent. kt5 20:44 Troponin HS Sent. 5 20:58 XRAY Chest (1 view) In Process Unspecified. EDMS 04/23 01:05 Provided Education on: follow up and meds. kt5 01:07 IV discontinued, intact, bleeding controlled, No redness/swelling at site. Pressure kt5 dressing applied. Administered Medications: 04/22 21:21 Drug: hydrALAZINE IVP 10 mg IVP once Route: IVP; Site: left forearm; kt5 04/23 00:48 Follow up: Response: No adverse reaction; Blood pressure is lowered kt5 01:05 Not Given (blood pressure goodd): [id number] mg IVP once kt5 01:05 Not Given (blood pressure good): [id number] mg PO once kt5 Medication: 04/22 20:12 VIS not applicable for this client. kt5 Outcome: 04/23 00:56 Discharge ordered by . tri 01:05 Discharged to home ambulatory, with family, kt5 01:05 Condition: improved 01:05 Discharge instructions given to patient, Instructed on discharge instructions, follow up and referral plans. Demonstrated understanding of instructions, follow-up care, medications, Prescriptions given X 1, 01:19 Patient left the ED. kt5 Signatures: Dispatcher [employer] EDMS Kieran Kelly PA-C PA-C cp DAVIS, DIANA, RN RN dd2 Nickolas Cotton sj2 Ayah Garcia, RN RN kt5 Corrections: (The following items were deleted from the chart) 04/22 21:32 21:11 BP 163 / ???; Pulse 102bpm; Resp 18bpm; Pulse Ox 100%; kt5 kt5
[2025-04-23 01:49] VITALS: BP 178/87; TEMP 98.2; O2SAT 100
== END 2025-04-23 01:19 | disposition home or self-care (01) ==
LOC: ER 19:30
DX: D50.9 Iron deficiency anemia, unspecified (principal); R53.81 Other malaise; I11.9 Hypertensive heart disease without heart failure; E03.9 Hypothyroidism, unspecified; I10 Essential (primary) hypertension; Z88.0 Allergy status to penicillin; Z88.5 Allergy status to narcotic agent
CPT/HCPCS: 93005; 85025; 80048; 36415; 83735; 85610; 84443; 84484; 84481; 84439; 82728; 83540; 83880; 84466; 71045; 96374; 99285; J0360